=== PATIENT | female | born 1970 | race Two or more races ===

== ENCOUNTER 2020-07-23 08:24 | Day surgery (SDC) | payer OTHER | END 2020-07-23 12:50 | disposition home or self-care (01) | LOC: AMB-ENDOS 08:24 | PROVIDERS: ATTEND Colon & Rectal Surgery | DX: K62.89 Other specified diseases of anus and rectum (principal); K64.2 Third degree hemorrhoids; Z20.828 Contact with and (suspected) exposure to other viral communicable diseases ==

== ENCOUNTER 2023-03-19 10:45 | Inpatient (IN) | payer OTHER ==
[~2023-03-19] VITALS: Ht 167.6 cm; Wt 102.1 kg
[2023-03-20] MEDS ORDERED: D3 + K2 DOTS 11 EACH PO (13:24)
[2023-03-20] MEDS ORDERED: METFORMIN HCL500 M3 PO (13:24)
[2023-03-22] MEDS ORDERED: FENOFIBRATE145 MG (13:05)
== END 2023-03-23 11:46 | disposition home or self-care (01) | DRG 741 ==
LOC: O/R 03-22 06:00 → SURG 03-22 06:00
PROVIDERS: ADMIT Obstetrics & Gynecology Gynecologic Oncology; ATTEND Obstetrics & Gynecology Gynecologic Oncology
PROC: 0UT74ZZ Resection of Bilateral Fallopian Tubes, Percutaneous Endoscopic Approach (ICD-10-PCS; 2023-03-22)
PROC: 0UT24ZZ Resection of Bilateral Ovaries, Percutaneous Endoscopic Approach (ICD-10-PCS; 2023-03-22)
PROC: 07BC4ZZ Excision of Pelvis Lymphatic, Percutaneous Endoscopic Approach (ICD-10-PCS; 2023-03-22)
PROC: 0UT94ZZ Resection of Uterus, Percutaneous Endoscopic Approach (ICD-10-PCS; principal; 2023-03-22 17:30)
DX: C54.1 Malignant neoplasm of endometrium (principal); D25.1 Intramural leiomyoma of uterus; Z20.822 Contact with and (suspected) exposure to COVID-19